=== PATIENT | female | born 1965 | race Caucasian/White ===

== ENCOUNTER 2016-03-26 00:26 | Observation (INO) | payer MEDICAID ==
[2016-03-26] VITALS (19 sets, daily range): BP systolic 126–172; RESP 9–26; TEMP 97.8–98.3; Ht 170.2 cm; Wt 62.6 kg
[~2016-03-26] VITALS: Ht 170.2 cm; Wt 62.6 kg
[2016-03-26] MEDS ORDERED: DEXTROSE 50% 50 ML ONE (01:30)
[2016-03-26] MEDS ORDERED: DEXTROSE 5% 0 ML ONE (01:31)
[2016-03-26] MEDS ORDERED: DEXTROSE 5% SALINE 0.45% 1,000 ML ONE (01:32)
[2016-03-26] MEDS ORDERED: ACETAMINOPHEN 325 MG TAB ONE (02:44)
[2016-03-26] MEDS ORDERED: MAG HYDROX 30 ML UDC PO PRN (04:05)
[2016-03-26] MEDS ORDERED: SALINE FLUSH 10 ML FLUSH PRN (04:05)
[2016-03-26] MEDS ORDERED: BISACODYL 10 MG SUPP RECTAL PRN (04:05)
[2016-03-26] MEDS ORDERED: BISACODYL EC 5 MG TAB PO PRN (04:05)
[2016-03-26] MEDS ORDERED: ALU/MAG/SIM 30 ML UDC PO PRN (04:05)
[2016-03-26] MEDS ORDERED: DEXTROSE 5% SALINE 0.45% 1,000 ML IV SCH (04:15)
[2016-03-26] MEDS ORDERED: TRAMADOL 50 MG TAB PO PRN (04:45)
[2016-03-26] MEDS ORDERED: DEXTROSE 10% 1,000 ML IV SCH (04:50)
[2016-03-26] MEDS ORDERED: KCL 20 MEQ PACK PO ONE (05:10)
[2016-03-26] MEDS ORDERED: KCL 20 MEQ PACK ONE (05:43)
[2016-03-26] MEDS ORDERED: TRAMADOL 50 MG TAB ONE (05:55)
[2016-03-26] MEDS ORDERED: SODIUM CHLORIDE 0.9% FLUSH BAG 500 ML IV SCH (06:00)
[2016-03-26] MEDS ORDERED: GABAPENTIN 600 MG TAB PO ONE (07:00)
[2016-03-26] MEDS ORDERED: LORAZEPAM 2 MG/ML VIAL IV PRN ×2 (07:20)
[2016-03-26] MEDS ORDERED: FAMOTIDINE 20 MG INJ IV SCH (08:00)
[2016-03-26] MEDS ORDERED: SALINE FLUSH 10 ML FLUSH SCH (08:00)
[2016-03-26] MEDS ORDERED: ACETAMINOPHEN 325 MG TAB PO PRN (08:35)
[2016-03-26] MEDS ORDERED: Ibuprofen 400 MG TAB PO PRN (08:35)
[2016-03-26] MEDS ORDERED: FOLIC ACID 1 MG TAB PO SCH (09:00)
[2016-03-26] MEDS ORDERED: ENOXAPARIN 40 MG/0.4 ML SYR SUBQ SCH (09:00)
[2016-03-26] MEDS ORDERED: THIAMINE 100 MG TAB PO SCH (09:00)
[2016-03-26] MEDS ORDERED: LACT RINGERS 1,000 ML IV SCH (09:10)
[2016-03-26] MEDS ORDERED: GLUCAGON 1 MG VIAL IM PRN (09:10)
[2016-03-26] MEDS ORDERED: DEXTROSE 50% SYRINGE 50 ML IV PRN (09:10)
[2016-03-26] MEDS: GABAPENTIN 600 MG TAB PO SCH ×2 (10:14→16:42)
[2016-03-26] MEDS ORDERED: FLUOXETINE 20 MG CAP PO SCH (12:25)
[2016-03-26] MEDS ORDERED: FENTANYL 50 MCG/HR PATCH TRANSDERM SCH (13:00)
[2016-03-26] MEDS ORDERED: NICOTINE 21 MG/24 HR TRANSDERM SCH (17:00)
[2016-03-26] MEDS ORDERED: AMITRIPTYLINE 100 MG TAB PO SCH (21:00)
[2016-03-26] MEDS ORDERED: LEVEMIR INSULIN SUBQ SCH (21:00)
[2016-03-27] MEDS ORDERED: ASPIRIN EC 81 MG TAB PO SCH (09:00)
[2016-03-27] MEDS ORDERED: PRAVASTATIN 20 MG TAB PO SCH (21:00)
[2016-03-29] MEDS ORDERED: REMOVE FENTANYL PATCH XX SCH (13:00)
== END 2016-03-26 17:49 | disposition home or self-care (01) ==
LOC: ENRESERVTM → ENRESERVDT → ENRESERV → ER 00:26 → INTOOBSV 04:04 → ENPENDDIS 04:04 → EMR 04:04 → CCU 06:16 → 3NT 15:15 → UNDODISIN 19:08
PROVIDERS: ADMIT Internal Medicine; ATTEND Internal Medicine
DX: T38.3X2A Poisoning by insulin and oral hypoglycemic [antidiabetic] drugs, intentional self-harm, initial encounter (principal); E16.0 Drug-induced hypoglycemia without coma; E87.6 Hypokalemia; E87.2 Acidosis; D72.829 Elevated white blood cell count, unspecified; Z79.4 Long term (current) use of insulin; F17.210 Nicotine dependence, cigarettes, uncomplicated; E10.40 Type 1 diabetes mellitus with diabetic neuropathy, unspecified; J44.9 Chronic obstructive pulmonary disease, unspecified; I10 Essential (primary) hypertension; Z79.82 Long term (current) use of aspirin; F33.1 Major depressive disorder, recurrent, moderate
CPT/HCPCS: 36415; 71010; 80048; 80053; 80320; 80329; 81003; 82553; 82947; 83605; 84484; 85025; 85610; 96361; 96374; 99223; 99235